=== PATIENT | male | born 1960 | race Caucasian/White ===

== ENCOUNTER 2020-03-18 12:37 | Emergency (ER) | payer OTHER ==
[~2020-03-18] VITALS: Ht 193 cm; Wt 108.0 kg
[2020-03-18 13:00] LABS: URINE BILIRUBIN NEGATIVE (Negative); URINE BLOOD NEGATIVE (Negative); URINE CLARITY CLEAR; URINE COLOR YELLOW; URINE GLUCOSE-RANDOM* NEGATIVE (Negative); URINE KETONES NEGATIVE (Negative); URINE LEUKOCYTES-REFLEX NEGATIVE (Negative); URINE NITRITE-REFLEX NEGATIVE (Negative); URINE PROTEIN (DIPSTICK) NEGATIVE (Negative); URINE UROBILINOGEN 0.2 E.U./dl (0.2-1.0)
[2020-03-18 13:20] LABS: ABSOLUTE NEUTROPHILS 3.5 thou/uL (1.4-8.2); BASOPHILS 0.8 % (0.0-2.0); EOSINOPHILS 2.1 % (0.0-3.0); HEMATOCRIT 42.4 % (42.0-52.0); HEMOGLOBIN 14.5 gm/dL (14.0-18.0); LYMPHOCYTES 17.3 % (24.0-44.0); MCH 29.8 pg (26.0-34.0); MCHC 34.1 g/dL (28.0-37.0); MCV 87.4 fL (80.0-100.0); MONOCYTES 10.7 % (1.0-8.0); PLATELET COUNT 257 thou/uL (150-400); POLYS 69.1 % (36.0-66.0); RBC 4.86 mil/uL (4.50-6.00); RDW 14.1 % (10.5-14.5); WBC 5.1 thou/uL (4.0-11.0)
[2020-03-18 13:24] LABS: CALCIUM 8.7 mg/dL (8.5-10.1); CREATININE 1.3 mg/dL (0.7-1.3); POTASSIUM 3.6 mmol/L (3.5-5.1)
[2020-03-18 13:30] LABS: TOTAL BILIRUBIN 0.6 mg/dL (<0.1-1.0); TOTAL PROTEIN 7.4 g/dL (6.4-8.2)
[2020-03-18] MEDS ORDERED: NORFLEX100 MG PO (17:36)
[2020-03-18] MEDS ORDERED: SENNA-DOCUSATE1 EAC1 PO (17:36)
[2020-03-18] MEDS ORDERED: NAPROSYN500 MG PO (17:36)
[2020-03-18] MEDS ORDERED: PERCOCET 7.5-31 EACH PO (17:36)
[2020-03-18 18:05] VITALS: BP 138/89
== END 2020-03-18 18:06 | disposition home or self-care (01) ==
LOC: ER 12:37
PROVIDERS: Emergency Medicine
DX: R10.31 Right lower quadrant pain (principal); Z87.891 Personal history of nicotine dependence

== ENCOUNTER → 2020-03-31 | Outpatient (CLI) | payer OTHER ==
[~2020-03-31] MED LIST: NAPROSYN500 MG PO; NORFLEX100 MG PO; PERCOCET 7.5-31 EACH PO; SENNA-DOCUSATE1 EAC1 PO
== END ==
LOC: CAT 11:09
DX: R10.9 Unspecified abdominal pain (principal)

== ENCOUNTER → 2020-04-21 | Outpatient (CLI) | payer OTHER | LOC: CAT 07:52 | DX: Z13.6 Encounter for screening for cardiovascular disorders (principal); E78.00 Pure hypercholesterolemia, unspecified; I25.10 Atherosclerotic heart disease of native coronary artery without angina pectoris ==

== ENCOUNTER 2021-04-13 11:43 | Emergency (ER) | payer OTHER ==
[~2021-04-13] VITALS: Ht 190.5 cm; Wt 106.6 kg
[2021-04-13] MEDS ORDERED: NORCO 10-325 T1 EACH PO (14:29)
[2021-04-13 15:57] VITALS: BP 137/96
== END 2021-04-13 15:58 | disposition home or self-care (01) ==
LOC: ER 11:43
DX: S93.491A Sprain of other ligament of right ankle, initial encounter (principal); M79.671 Pain in right foot; Z87.891 Personal history of nicotine dependence; Z91.013 Allergy to seafood; Z79.899 Other long term (current) drug therapy; W18.30XA Fall on same level, unspecified, initial encounter; Y93.89 Activity, other specified; Y92.89 Other specified places as the place of occurrence of the external cause; Y99.9 Unspecified external cause status